=== PATIENT | female | born 1995 | race Caucasian/White ===

== ENCOUNTER 2021-05-12 17:47 | Emergency (ER) | payer OTHER, SELFPAY ==
[2021-05-12 17:53] VITALS: BP 110/75; BP 120/76; PULSE 87; PULSE 88; RESP 18; TEMP 36.9; O2SAT 100; BMI 26.6
== END 2021-05-12 19:35 | disposition left against medical advice (07) ==
LOC: HO.ED 19:20
PROVIDERS: Emergency Provider Emergency Medicine
DX: O9A.312 Physical abuse complicating pregnancy, second trimester (principal); S00.81XA Abrasion of other part of head, initial encounter; Y04.2XXA Assault by strike against or bumped into by another person, initial encounter; Z3A.00 Weeks of gestation of pregnancy not specified; Y93.9 Activity, unspecified; Y92.9 Unspecified place or not applicable; Y99.9 Unspecified external cause status; Y07.03 Male partner, perpetrator of maltreatment and neglect
CPT/HCPCS: 99281; 99282

== ENCOUNTER 2021-05-19 12:56 | Emergency (ER) | payer OTHER, SELFPAY ==
[2021-05-19 13:29] VITALS: BP 118/56; PULSE 98; RESP 16; TEMP 36.1; O2SAT 100; BMI 26.3
[2021-05-19 13:45] LABS: MANUAL DIFF FLAG NO
[2021-05-19 13:50] LABS: Basophils Percent Auto 0.3 % (0-2); Eosinophils Absolute Auto 0.2 X10*3/uL (0.0-0.4); Eosinophils Percent Auto 2.1 % (0-4); Hematocrit 39.2 % (37.0-47.0); Imm Gran Abs Auto 0.03 X10*3/uL (0.00-0.03); Imm Gran Pct Auto 0.4 % (0.0-0.4); Lymphocytes Absolute Auto 1.5 X10*3/uL (1.2-4.9); Lymphocytes Percent Auto 21.1 % (20-40); Mean Corpuscular HGB Conc 33.2 g/dl (31.0-35.0); Mean Corpuscular Hemoglobin 30.7 pg (27.0-33.0); Mean Corpuscular Volume 92.7 fL (80.0-98.0); Mean Platelet Volume 9.6 fL (9.4-12.3); Monocytes Absolute Auto 0.4 X10*3/uL (0.1-1.2); Neutrophils Percent Auto 71.1 % (45-73); Platelet Count 274 X10*3/uL (160-400); Red Blood Count 4.23 X10*6/uL (4.20-5.50); Red Cell Distribution Width 12.9 % (11.0-16.0)
[2021-05-19 13:53] LABS: Appearance Urine HAZY; Color Urine YELLOW; Glucose Urine UA NEG (NEG); Leukocyte Esterase Urine NEG (NEG); Nitrite Urine NEG (NEG); Urine Blood NEG (NEG); Urine Ketones NEG (NEG); Urine Protein NEG (NEG-TRACE)
[2021-05-19 14:03] LABS: Anion Gap 14 (12-20); Blood Urea Nitrogen 5 mg/dL (9-16); Calcium 9.2 mg/dL (8.4-10.2); Carbon Dioxide 22 mmol/L (22-29); Chloride 102 mmol/L (96-108); Estimated Glomerular Filt Rate > 60; Glucose Random 80 mg/dL (60-115); Potassium 4.2 mmol/L (3.3-5.1); Sodium 134 mmol/L (135-145)
--- NOTE | 2021-05-19 16:52 | ED_ITS ---
HPI - Abdominal Pain General Chief Complaint: Abdominal Pain Stated Complaint: R side pelvic pain/5 months preg Time Seen by Provider: 05/19/21 16:39 Source: patient Mode of arrival: ambulatory Limitations: no limitations History of Present Illness HPI narrative: 25-year-old female about 5 months with nonsignificant history, patient been having vomiting since the beginning of the , patient came in today for new lower pelvic pain to both sides, pain is localized to bilateral groin area radiated to the back, pain is constant described as moderate not food related, patient been having good appetite all day, no fever or chills, overall patient do not feel sick, no uterine contractions, no vaginal bleeding. Related Data Allergies Allergy/AdvReac Type Severity Reaction Status Date / Time lithium Allergy Hallucinati Verified 05/12/21 17:53 ons Penicillins [PCN] Allergy Hives Verified 05/12/21 17:53 Review of Systems Review of Systems All other systems are reviewed and are negative Constitutional: Reports as per HPI and Reports no additional constitutional complaints Eyes: Reports as per HPI and Reports no additional eye complaints Reports system reviewed and no additional complaints, except as documented Cardiovascular: Reports as per HPI and Reports no additional cardiovascular complaints Respiratory: Reports as per HPI and Reports no additional respiratory complaints Gastrointestinal: Reports as per HPI and Reports no additional gastrointestinal complaints Genitourinary: Reports no additional female genitourinary complaints Musculoskeletal: Reports no additional musculoskeletal complaints Skin/Breast: Reports system reviewed and no additional complaints, except as docu Psychiatric: Reports no additional psychiatric complaints Endocrine: Reports no additional endocrine complaints Hematologic/Lymphatic: Reports no additional hematologic/lymphatic complaints Allergic/Immunologic: Reports no additional allergic/immunologic complaints Reports system reviewed and no additional complaints, except as documented and R eports Abnormal speech present [facility] Past Medical History Medical History (Updated 05/19/21 @ 17:13 by Liza North MD) No known health problems Social History Social History Advance Directives: No Advance Directives Information Provided: No Patient : Yes Physical Exam ED Vital Signs: Vital Signs - 24 hr 05/19/21 13:29 Temperature 97 F Pulse Rate 98 Respiratory Rate 16 Blood Pressure 118/56 L Pulse Oximetry 100 BMI result Body Mass Index 26.3 Vital signs have been reviewed as appeared to be correct. Blood pressure normal. Heart rate normal. Respiration rate normal. Temperature normal. Oxygen saturation normal. Appearance: Alert. Oriented X3. No acute distress. Head: Normal external exam. Normocephalic. Atraumatic. No Viera signs noted. No raccoon eyes noted Eyes: PERRLA. EOMI. Conjunctiva and sclera normal. Eyelids normal. ENT: TM's Normal. Pharynx normal. Uvula midline. Moist mucous membranes. No trismus noted. No drooling noted. No muffled voice noted. Neck: Normal inspection. Neck supple. FROM. No adenopathy. Thyroid Normal. No meningeal signs. No neck mass noted. CVS: Normal heart rate and rhythm. Heart sound normal. No murmurs noted. Pulses normal throughout. Respiratory: No respiratory distress. Painless inspiration. Breath sounds normal. No wheezes/rales/rhonchi noted. Chest nontender. No accessory muscle usage noted or decreased air movement noted. Abdomen: Soft and nontender. Uterus enlarged to the umbilical level. Bowel sounds normal in all 4 quadrants. No distention noted. No organomegaly noted. No visible injury noted. Back: No CVA tenderness. Full range of motion noted. Skin: Skin warm and dry. Normal skin color. Normal skin turgor. No rashes/lesions/lacerations noted. Extremities: No lower extremity edema. Extremities exhibit normal range of motion. Extremities nontender. Neuro: Oriented X 3. Cranial nerve exam: II-XII are grossly intact No motor deficit. No sensory deficit. Reflexes normal. Course Course Course Narrative: Assessment and plan. 25-year-old female presented with lower pelvic pain, patient is 5 months with no obstetrical problems, abdominal exam reveals no tenderness or rebound tenderness or guarding, patient with normal WBCs, as I explained to the patient there is very low chance that patient's presentation could be acute appendicitis or early appendicitis which is extremely unlikely with a normal WBCs and patient's exam findings, more than likely patient's symptoms is related to her large uterus and ligamentous strain specially with the radiation of the pain to the back and increase with movement. However patient was instructed to return back if pain is becoming more severe or start to develop more symptoms of nausea or vomiting or diarrhea or fever or loss of appetite. MDM - Abdominal Pain Medical Records Attestation: I reviewed the patient's medical records. Lab Data Attestation: I reviewed the patient's lab results. Result diagrams: 05/19/21 13:42 05/19/21 13:42 Labs: Lab Results 05/19/21 05/19/21 05/19/21 Range/Units 13:42 13:42 13:42 WBC 7.0 (4.8-10.8) X10*3/uL RBC 4.23 (4.20-5.50) X10*6/uL Hgb 13.0 (12.0-16.0) g/dl Hct 39.2 (37.0-47.0) % MCV 92.7 (80.0-98.0) fL MCH 30.7 (27.0-33.0) pg MCHC 33.2 (31.0-35.0) g/dl RDW 12.9 (11.0-16.0) % Plt Count 274 (160-400) X10*3/uL MPV 9.6 (9.4-12.3) fL Immature Gran % (Auto) 0.4 (0.0-0.4) % Neut % (Auto) 71.1 (45-73) % Lymph % (Auto) 21.1 (20-40) % Payette % (Auto) 5.0 (2-11) % Eos % (Auto) 2.1 (0-4) % Baso % (Auto) 0.3 (0-2) % Lymph # (Auto) 1.5 (1.2-4.9) X10*3/uL Payette # (Auto) 0.4 (0.1-1.2) X10*3/uL Eos # (Auto) 0.2 (0.0-0.4) X10*3/uL Baso # (Auto) 0.0 (0.0-0.2) X10*3/uL Abs Immat Gran (auto) 0.03 (0.00-0.03) X10*3/uL Absolute Neuts (auto) 5.0 (2.0-8.3) x10*3/uL Absolute Nucleated RBC 0.000 (0.0-0.012) X10*3/uL Nucleated RBC % (auto) 0.0 (0.0-0.2) /100WBC Sodium 134 L (135-145) mmol/L Potassium 4.2 (3.3-5.1) mmol/L Chloride 102 (96-108) mmol/L Carbon Dioxide 22 (22-29) mmol/L Anion Gap 14 (12-20) BUN 5 L (9-16) mg/dL Creatinine 0.58 (0.5-1.4) mg/dL Estim Creat Clear Calc 166.0 Estimated GFR > 60 Random Glucose 80 (60-115) mg/dL Calcium 9.2 (8.4-10.2) mg/dL Urine Color YELLOW Urine Appearance HAZY Urine pH 7.0 (5.0-8.0) Ur Specific [place]on 1.010 (1.005-1.025) Urine Protein NEG (NEG-TRACE) MG/DL Urine Glucose (UA) NEG (NEG) MG/DL Urine Ketones NEG (NEG) MG/DL Urine Blood NEG (NEG) Urine Nitrite NEG (NEG) Ur Leukocyte Esterase NEG (NEG) Discharge Plan Discharge Clinical Impression: Abdominal pain, Second trimester Patient Disposition: Home, Self-Care Instructions: Abdominal Pain in (ED) Additional Instructions: Come back to the emergency department if pain persists for more than 2 days, or develop any new symptoms of worsening of the pain or developing nausea or vomiting or fever or chills. Referrals: Physician,None [Primary Care Provider] - 2 days
--- NOTE | 2021-05-19 17:03 | PC.NURSE ---
Pt received: Pt AOX4 and is currently 5 months . . Pt c/o B/L pelvic pain that intermittently radiates to the groin. Heart sounds normal and lungs clear. Pt abd soft and mild tenderness to B/L pelvis.
[2021-05-19 17:10] LABS: Alanine Aminotransferase 10 U/L (0-31); Albumin Level 4.1 g/dL (3.5-5.0); Alkaline Phosphatase 61 U/L (39-117); Aspartate Amino Transferase 19 U/L (5-31); Bilirubin Direct < 0.2 mg/dL (0.0-0.5); Bilirubin Total 0.5 mg/dL (0.0-1.0); Lipase 8 U/L (8-78); Total Protein 7.5 g/dL (6.5-8.0)
== END 2021-05-19 17:41 | disposition home or self-care (01) ==
PROVIDERS: Emergency Provider Emergency Medicine
DX: O26.892 Other specified pregnancy related conditions, second trimester (principal); R10.2 Pelvic and perineal pain; Z3A.21 21 weeks gestation of pregnancy
CPT/HCPCS: 36415; 80048; 80076; 81003; 83690; 84702; 85025; 99283

== ENCOUNTER 2021-07-03 09:45 | Emergency (ER) | payer OTHER, SELFPAY ==
--- NOTE | ~2021-07-03 | XR_ITS ---
EXAMINATION: XR CHEST CLINICAL INFORMATION: Cough and nasal congestion COMPARISON: None TECHNIQUE: AP portable upright view of the chest was obtained. FINDINGS: No significant abnormality is noted involving the heart, lungs, mediastinum, bony thorax or soft tissues. XR/XR chest 1V IMPRESSION: Unremarkable examination.
[2021-07-03 09:57] VITALS: BP 106/57; PULSE 104; RESP 20; TEMP 36.7; O2SAT 97; BMI 27.4
[2021-07-03 10:12] VITALS: BP 107/57; PULSE 106; RESP 18; O2SAT 98
--- NOTE | 2021-07-03 10:31 | ED.URI ---
HPI - URI/Sore Throat General Chief Complaint: Abdominal Pain Stated Complaint: diff breathing 7 mos Time Seen by Provider: 07/03/21 09:58 Source: patient and family ( significant other at bedside) Mode of arrival: ambulatory Limitations: no limitations History of Present Illness HPI Narrative: 25-year-old female who is currently 7 months being followed by emergency OBGYN with no complications this is not a high risk who is [id number] presenting to the ED with complaints of 2 days of chills, fatigue, malaise, body aches, nasal congestion / rhinorrhea and a productive cough with clear/ white/ yellow colored sputum with posttussive emesis. She reports that she is not vaccinated for flu or COVID. She denies recent travel or sick contacts. She denies any measured fevers, dizziness, headaches, neck pain / stiffness, trouble swallowing or breathing, chest pain or shortness of breath, wheezing, dyspnea on exertion, orthopnea, palpitations, abdominal pain, back pain, decreased movement, vaginal bleeding, abnormal vaginal discharge, hematuria, dysuria, lower extremity edema or calf tenderness, rashes or any other symptoms complaints or concerns at this time. MD elicited complaint: cough, rhinorrhea and nasal congestion Onset (ago): day(s) (2) Consistency: constant and progressively worsening Severity: moderate Description of mucous: clear, watery and yellow Able to tolerate fluids by mouth: Yes Exacerbating factors: nothing Relieving factors: nothing Associated symptoms: chills, myalgias, rhinorrhea, nasal congestion, cough, nausea and vomiting Treatments prior to arrival: none Related Data Previous Rx's Medication Instructions Recorded acetaminophen 500 mg tablet 1,000 mg PO QID PRN #14 tab 07/03/21 (Tylenol Extra Strength) oseltamivir 75 mg capsule (Tamiflu) 75 mg PO BID 5 Days #10 cap 07/03/21 Allergies Allergy/AdvReac Type Severity Reaction Status Date / Time lithium Allergy Hallucinati Verified 05/12/21 17:53 ons Penicillins [PCN] Allergy Hives Verified 05/12/21 17:53 Review of Systems Review of Systems: Constitutional : + Chills/fatigue/ malaise, No Weight loss, No Night Sweats ENT/Mouth : + nasal congestion/rhinorrhea, No Hearing loss, No Ear Pain, No Sinus Pain, No Hoarseness, No sore throat, No Swallowing Difficulty Eyes: No Eye Pain, No Swelling, No Redness, No Foreign Body, No Discharge, No Vision Changes Cardiovascular : No Chest Pain, No SOB, No Dyspnea on Exertion, No Orthopnea, No Edema, No Palpitations Respiratory : + Cough, + Sputum, + posttussive emesis, No Wheezing, No Smoke Exposure, No Dyspnea Gastrointestinal : No Nausea, No Vomiting, No Diarrhea, No Constipation, No abdominal Pain, No Hematochezia, No Melena Genitourinary : no irregular bleeding, No Dysuria, No Urinary Frequency, No Hematuria, No Urinary Incontinence, No Urgency, No Flank Pain, No Urinary Flow Changes, No Hesitancy Musculoskeletal : No joint pain, No Myalgias, No Joint Swelling Skin : No Skin Lesions, No rash Neuro : No Weakness, No Numbness, No Paresthesias, No Loss of Consciousness, No Dizziness, No Headache Psych : No Anxiety/Panic, No Depression, No SI/HI/AH/VH, No Social Issues, Heme/Lymph: No Bruising, No Bleeding,No Lymphadenopathy Endocrine : No Polyuria, No Polydipsia, No Temperature Intolerance Yes all other systems are reviewed and are negative [facility] Past Medical History Attestation statement: The following information was validated with the patient. Medical History No known health problems Social History Social History Advance Directives: No Advance Directives Information Provided: No Patient : Yes Physical Exam Vital Signs: Vital Signs: Last Vital Signs Temp 98.1 F 07/03/21 09:57 Pulse 106 H 07/03/21 10:12 Resp 18 07/03/21 10:12 BP 107/57 L 07/03/21 10:12 Pulse Ox 98 07/03/21 10:12 BMI result Body Mass Index 27.4 vital signs have been reviewed as normal and appeared to be correct. Blood pressure 106/57. Heart rate 104 Respiration rate normal. Temperature normal. Oxygen saturation normal. Appearance: Alert. Oriented X3. No acute distress. Head: Normal external exam. Normocephalic. Atraumatic. Eyes: PERRLA. EOMI. Conjunctiva and sclera normal. Eyelids normal. ENT: EAC normal. TM's Normal. Pharynx normal. Uvula midline. Moist mucous membranes. No lesions/ulcerations or masses noted on the tongue. Normal voice. No trismus noted. No drooling noted. No muffled voice noted. Neck: Normal inspection. Neck supple. FROM. No adenopathy. Thyroid Normal. No tracheal deviation noted. No crepitus is noted. No meningeal signs. No neck mass noted. No signs of trauma noted. CVS: Normal heart rate and rhythm. Heart sound normal. Pulses normal throughout. No murmurs/rales/gallops. Respiratory: No respiratory distress. Painless inspiration. Breath sounds normal. No wheezes/rales/rhonchi noted. Chest nontender. No crepitus is noted. No signs of trauma noted. No accessory muscle usage noted or decreased air movement noted. No signs of trauma. Abdomen: Soft and nontender. Bowel sounds normal in all 4 quadrants. No distention noted. No organomegaly noted. No visible injury noted. Back: No CVA tenderness. Full range of motion noted. Nontender. No signs of trauma. Patient neuro intact bilaterally and distally on all 4 extremities. Patient's reflexes intact bilaterally and distally on all 4 extremities. No rashes/lesion/induration/fluctuance or signs of infection noted. gravid uterus consistent with Seven months. movement noted. Normal heart tones. Skin: Skin warm and dry. Normal skin color. Normal skin turgor. No rashes/lesions/lacerations noted. Extremities: No lower extremity edema. No calf tenderness is noted. Extremities exhibit normal range of motion and nontender. Neuro: Oriented X 3. No motor deficit. No sensory deficit. Reflexes normal. Normal steady gait. No focal neuro deficits noted. CN's II-XII intact bilaterally? Vascular: + radial pulses/+ 2 distal pedal pulses/+2 dorsalis pedis b/l. Normal cap refill. No cyanosis noted to upper extremity nails and lower extremity toes nails. Course Course Course Narrative: 10am 25-year-old female who is currently 7 months being followed by emergency OBGYN with no complications this is not a high risk who is [id number] presenting to the ED with complaints of 2 days of chills, fatigue, malaise, body aches, nasal congestion / rhinorrhea and a productive cough with clear/ white/ yellow colored sputum with posttussive emesis. She reports that she is not vaccinated for flu or COVID. She denies recent travel or sick contacts. She denies any measured fevers, dizziness, headaches, neck pain / stiffness, trouble swallowing or breathing, chest pain or shortness of breath, wheezing, dyspnea on exertion, orthopnea, palpitations, abdominal pain, back pain, decreased movement, vaginal bleeding, abnormal vaginal discharge, hematuria, dysuria, lower extremity edema or calf tenderness, rashes or any other symptoms complaints or concerns at this time. Will obtain a chest x-ray due to patient wants a chest x-ray I did explain benefits and risks and she wants to be shielded. Will obtain a COVID and flu swab. Obtain heart tones and re-evaluate. Reevaluation(s) Reevaluation #1: - Patient negative for COVID. Patient positive for flu. Chest x-ray within normal limits no evidence of pneumonia. Will DC home with Tamiflu and instructions to take Tylenol and to return if any new or worsening symptoms to follow up with primary care provider and OBGYN. Patient understands agrees with this plan. Time: 10:54 [facility] - URI/Sore Throat Medical Records Attestation: I reviewed the patient's medical records. Lab Data Attestation: I reviewed the patient's lab results. Labs: Lab Results 07/03/21 07/03/21 Range/Units 10:14 10:14 COVID-19 (CARLOS) Negative (Negative) COVID-19 Clin Com See Note Influenza Type A (STACY) Positive A (Negative) Influenza Type B (STACY) Negative (Negative) Influenza A & B Note See Note Imaging Data Chest x-ray: Attestation: I personally reviewed and interpreted this imaging study as follows: Radiologist's impression: FINDINGS: No significant abnormality is noted involving the heart, lungs, mediastinum, bony thorax or soft tissues. XR/XR chest 1V IMPRESSION: Unremarkable examination. Discharge Plan Discharge Clinical Impression: Influenza A Patient Disposition: Home, Self-Care Instructions: Influenza (DC) Prescriptions: New oseltamivir [Tamiflu] 75 mg capsule 75 mg PO BID 5 Days Qty: 10 0RF acetaminophen [Tylenol Extra Strength] 500 mg tablet 1,000 mg PO QID PRN (Reason: fever or pain) Qty: 14 0RF Referrals: Physician,None [Primary Care Provider] - (your pcp and OBGYN) Print Language: [place]
[2021-07-03 10:32] LABS: COVID-19 Test Negative (Negative); IDNOW Serial# 55D5AD1C; Influenza A Positive (Negative); Influenza B2 Negative (Negative)
== END 2021-07-03 11:05 | disposition home or self-care (01) ==
PROVIDERS: Physician Assistant Medical; Emergency Provider Emergency Medicine
DX: O99.513 Diseases of the respiratory system complicating pregnancy, third trimester (principal); J10.1 Influenza due to other identified influenza virus with other respiratory manifestations; Z3A.00 Weeks of gestation of pregnancy not specified; Z20.822 Contact with and (suspected) exposure to COVID-19
CPT/HCPCS: 71045; 87502; 87635; 99283

== ENCOUNTER 2021-07-19 11:08 | Emergency (ER) | payer OTHER, SELFPAY ==
[2021-07-19 12:16] VITALS: BP 132/78; PULSE 110; RESP 22; TEMP 36.6; O2SAT 99; BMI 28.3
[2021-07-19 12:59] LABS: IDNOW Serial# 08D9AD1C; Strep A Nucleic Acid Negative (Negative)
== END 2021-07-19 16:52 | disposition left against medical advice (07) ==
LOC: HO.ED 15:23
PROVIDERS: Emergency Provider Emergency Medicine
DX: R07.89 Other chest pain (principal); J02.9 Acute pharyngitis, unspecified; R05.9 Cough, unspecified; R11.10 Vomiting, unspecified; R09.81 Nasal congestion
CPT/HCPCS: 36415; 87651; 99281; 99282; 99283

== ENCOUNTER 2021-07-31 02:35 | Emergency (ER) | payer OTHER, SELFPAY ==
[2021-07-31 02:41] VITALS: BP 113/56; PULSE 111; RESP 18; TEMP 37; O2SAT 97; BMI 27.1
--- NOTE | 2021-07-31 03:33 | ED_ITS ---
HPI - General Chief complaint: Abdominal Pain Stated complaint: 7 Months /Leaking Time Seen by Provider: 07/31/21 03:07 Source: patient Mode of arrival: ambulatory History of Present Illness HPI Narrative: 25-year-old female without significant past medical history, , 30 weeks without any complications thus far who states that approximately 2300 she began experiencing clear fluid leak which for from her vagina but denies any bleeding, she denies any cramps but states she is having lower pelvic pain and was concerned that her water may have broken. Patient denies any urinary symptoms, fevers, chills, shortness of breath. Related Data Previous Rx's Medication Instructions Recorded acetaminophen 500 mg tablet 1,000 mg PO QID PRN #14 tab 07/03/21 (Tylenol Extra Strength) oseltamivir 75 mg capsule (Tamiflu) 75 mg PO BID 5 Days #10 cap 07/03/21 Allergies Allergy/AdvReac Type Severity Reaction Status Date / Time lithium Allergy Hallucinati Verified 05/12/21 17:53 ons Penicillins [PCN] Allergy Hives Verified 05/12/21 17:53 Review of Systems Review of Systems: Pertinent positives and negatives as stated in HPI 10 point review of systems is otherwise negative. PMFSH Past Medical History Source: nursing notes reviewed Medical History No known health problems Social History Social History Advance Directives: No Physical Exam Vital Signs: Vital Signs: Last Vital Signs Temp 98.6 F 07/31/21 02:41 Pulse 111 H 07/31/21 02:41 Resp 18 07/31/21 02:41 BP 113/56 L 07/31/21 02:41 Pulse Ox 97 07/31/21 02:41 BMI result Body Mass Index 27.1 VITAL SIGNS: Reviewed. GENERAL: Well developed, well nourished, in no acute distress. HEAD: Normocephalic/atraumatic, EYES: PERRLA, EOMI EARS: Ext canals without abnormality OROPHARYNX: no oral lesions noted, posterior pharynx clear LUNGS: Normal breath sounds. No adventitious sounds or accessory muscle use. SpO2<97> CARDIOVASCULAR: Regular rate and rhythm without noted murmurs ABDOMEN: Soft, non-tender, non-distended with bowel sounds. PELVIC: There is clear fluid mixed with white chunky material in the posterior fornix SKIN: Inspection of the skin reveals no rashes NEUROLOGIC: Alert and oriented x 4. Bedside ultrasound: Noted 1 movement, FHR-96 Course Course Course Narrative: 25-year-old female with history and clinical presentation consistent with loss of fluid and lower pelvic pain, heart rate is noted to be low and there is fluid within the posterior fornix of the vagina. This case was discussed with Dr. Mathews who accepts transfer. Discharge Plan Discharge Clinical Impression: Currently , Acute fluid loss, heart rate present Patient Disposition: Xfer [facility] Transfer Details: Loss of fluid, low heart rate Prescriptions: No Action oseltamivir [Tamiflu] 75 mg capsule 75 mg PO BID 5 Days Qty: 10 0RF acetaminophen [Tylenol Extra Strength] 500 mg tablet 1,000 mg PO QID PRN (Reason: fever or pain) Qty: 14 0RF
[2021-07-31] MEDS: 0.9 % Sodium Chloride 1,000 ML 999 ML IV (04:01)
[2021-07-31 04:04] LABS: COVID-19 Test Negative (Negative); IDNOW Serial# 9DB6401D
== END 2021-07-31 04:10 | disposition short-term general hospital (02) ==
PROVIDERS: Emergency Provider Student in an Organized Health Care Education/Training Program
DX: O41.8X30 Other specified disorders of amniotic fluid and membranes, third trimester, not applicable or unspecified (principal); O26.893 Other specified pregnancy related conditions, third trimester; R10.30 Lower abdominal pain, unspecified; Z3A.30 30 weeks gestation of pregnancy; Z20.822 Contact with and (suspected) exposure to COVID-19
CPT/HCPCS: 87635; 99285

== ENCOUNTER 2022-11-03 15:24 | Emergency (ER) | payer OTHER, SELFPAY ==
[2022-11-03 15:27] VITALS: BP 122/74; PULSE 112; O2SAT 96
[2022-11-03 15:31] VITALS: BP 119/71; PULSE 109; RESP 18; TEMP 36.2; O2SAT 99; BMI 26.3
[2022-11-03 16:05] LABS: Appearance Urine Cloudy; Color Urine Dark Yellow; Glucose Urine UA 250 mg/dL (Negative); Leukocyte Esterase Urine Small (1+) (Negative); Nitrite Urine Negative (Negative); PH 6.5 (5.0-9.0); Specific Gravity - Urine 1.025 (1.005-1.025); UMIC TRIGGER UACC YES; Urine Blood Negative (Negative); Urine Ketones Trace mg/dL (Negative); Urine Protein 30 (1+) mg/dL (Neg-Trace)
[2022-11-03 16:17] LABS: Amphetamine Screen Urine Not Detected (Not Detect); Barbiturates, Urine Not Detected (Not Detect); Benzodiazepines Screen Urine Not Detected (Not Detect); Cannabinoid Screen Urine POSITIVE (Not Detect); Cocaine Screen Urine Not Detected (Not Detect); Fentanyl, urine Not Detected (Not Detect); Opiate Screen Urine Not Detected (Not Detect); Phencyclidine Screen Urine Not Detected (Not Detect)
[2022-11-03 16:18] LABS: MANUAL DIFF FLAG NO
[2022-11-03 16:22] LABS: Basophils Percent Auto 0.3 % (0-2); Eosinophils Absolute Auto 0.3 X10*3/uL (0.0-0.4); Eosinophils Percent Auto 5.5 % (0-4); Hematocrit 34.2 % (37.0-47.0); Hemoglobin 11.4 g/dl (12.0-16.0); Imm Gran Abs Auto 0.02 X10*3/uL (0.00-0.03); Imm Gran Pct Auto 0.3 % (0.0-0.4); Lymphocytes Absolute Auto 1.3 X10*3/uL (1.2-4.9); Lymphocytes Percent Auto 22.5 % (20-40); Mean Corpuscular HGB Conc 33.3 g/dl (31.0-35.0); Mean Corpuscular Hemoglobin 30.9 pg (27.0-33.0); Mean Corpuscular Volume 92.7 fL (80.0-98.0); Mean Platelet Volume 9.3 fL (9.4-12.3); Monocytes Absolute Auto 0.4 X10*3/uL (0.1-1.2); Monocytes Percent Auto 7.3 % (2-11); Neutrophils Absolute Auto 3.8 x10*3/uL (2.0-8.3); Neutrophils Percent Auto 64.1 % (45-73); Platelet Count 276 X10*3/uL (160-400); Red Blood Count 3.69 X10*6/uL (4.20-5.50); Red Cell Distribution Width 13.2 % (11.0-16.0); White Blood Count 5.9 X10*3/uL (4.8-10.8)
[2022-11-03 16:23] LABS: Bacteria Urine 4+ (None Seen); Hyaline Casts Urine 0-2 /LPF (0-2); RBC Urine 0-2 /HPF (0-2); Squamous Epithelial Cell Urine >20 /HPF (0-2); UACC Culture Trigger YES; WBC Urine 21-50 /HPF (0-5)
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
[2022-11-03 16:42] LABS: Ethanol < 10 mg/dL
--- NOTE | 2022-11-03 16:45 | MHC.CARE ---
Pt seen by [facility] and is on section 12 for inpatient level of care.
[2022-11-03 16:49] LABS: Alanine Aminotransferase 13 U/L (0-31); Albumin Level 3.4 g/dL (3.5-5.0); Alkaline Phosphatase 69 U/L (39-117); Anion Gap 10 (12-20); Aspartate Amino Transferase 18 U/L (5-31); Bilirubin Total 0.2 mg/dL (0.0-1.0); Blood Urea Nitrogen 7 mg/dL (9-16); Calcium 8.8 mg/dL (8.4-10.2); Carbon Dioxide 25 mmol/L (22-29); Chloride 107 mmol/L (96-108); Creatinine Clr Calc Pharmacy 139.1; Estimated Glomerular Filt Rate > 60; Glucose Random 83 mg/dL (60-115); HCG Quantitative 8140 mIU/mL; Potassium 3.8 mmol/L (3.3-5.1); Sodium 138 mmol/L (135-145); Total Protein 6.5 g/dL (6.5-8.0)
--- NOTE | 2022-11-03 20:08 | PHA.MEDREC ---
Pharmacy Consult ? Medication Reconciliation Pharmacy has reviewed the medication reconciliation competed by [facility]. Hydoxyzine is PRN instead of RADHA per claim history. Patient is . Hydoxyzine is not safe to use in early - 1st and 2nd trimesters due to cardiac defects. Fluoxetine has been adjust to once weekly dose due to pregnacy . Cynthia Shepherd, PharmD
[2022-11-03] MEDS: QUEtiapine Fumarate 25 MG TABLET PO (21:12)
[2022-11-03] MEDS: Nitrofurantoin Monohyd/M-Cryst 100 MG CAPSULE PO (21:13)
[2022-11-04 02:19] VITALS: BP 114/69; PULSE 74; RESP 16; TEMP 36.2; O2SAT 99
--- NOTE | 2022-11-04 05:51 | PC.NURSE ---
Patient slept through the night, Patient six month , no distress observed/reported, medication compliant, + for UTI Macrobid BID initiated, behavior non concerning, patient was assessed by [facility] in the community with disposition section 12 inpatient bed search however per care team patient may get transfer to [facility], labs completed/resulted, will continue to monitor.
[2022-11-04] MEDS: Nitrofurantoin Monohyd/M-Cryst 100 MG CAPSULE PO ×2 (09:58→20:59)
[2022-11-04] MEDS: Multivitamin TABLET 1 TAB PO (09:59)
[2022-11-04] MEDS: FLUoxetine HCl 20 MG CAPSULE 40 MG PO (09:59)
--- NOTE | 2022-11-04 10:00 | PC.NURSE ---
pt served with Restraining Order by [facility].
[2022-11-04 11:19] VITALS: BP 94/57; PULSE 95; RESP 16; TEMP 36; O2SAT 100
--- NOTE | 2022-11-04 11:29 | MHC.CARE ---
[facility] stated that pt has a potential placement at [facility] pending medical clearance from this facility.? This information was shared with psychiatric provider Hammad Culver who noted some concerning findings with pt?s labs. Hammad Culver spoke with OB Dr. Hillman who believes that [facility]?s inpatient unit would be the best option for her because of the findings.? This information was sheared with Sarah from [facility] who advised CARE Team that they had spoke with [facility] and was advised that [facility] will not be taking any outside referrals this weekend. [facility] team[facility] been advised.
[2022-11-04 16:22] VITALS: BP 113/69; PULSE 77; RESP 20; TEMP 36.2; O2SAT 100
--- NOTE | 2022-11-04 17:00 | PC.NURSE ---
Spoke with CALVIN Lizama from [facility]. Pt not accepted to [facility] because she is . Care Team aware. pt made aware.
[2022-11-04] MEDS: QUEtiapine Fumarate 25 MG TABLET PO (20:59)
[2022-11-04 21:54] LABS: COVID-19 Test Negative (Negative); IDNOW Serial# 08D9AD1C
[2022-11-05 02:17] VITALS: BP 109/57; PULSE 75; RESP 16; TEMP 36.3; O2SAT 100
--- NOTE | 2022-11-05 05:51 | PC.NURSE ---
Patient slept through the night, patient is six month , no distress observed/reported, medication compliant, + for UTI Macrobid BID initiated, behavior non concerning, patient was assessed by [facility] in the community with disposition section 12 inpatient bed search, no update on bed search yet, VSS, will continue to monitor.
[2022-11-05] MEDS: Nitrofurantoin Monohyd/M-Cryst 100 MG CAPSULE PO (07:59)
[2022-11-05] MEDS: Multivitamin TABLET 1 TAB PO (07:59)
--- NOTE | 2022-11-05 10:20 | MHC.CARE ---
Call to [facility] for clarification on patient?s disposition. Spoke with water supervisor Kaye who reported that patient was reassessed by a clinician last night and determination was discharge, follow up with current providers. Talked to patient who stated that her understanding was that she could leave in the am, has a ride and a safe place to go today. See evaluation for further details. Updated ED provider who will discharge patient.
== END 2022-11-05 10:18 | disposition home or self-care (01) ==
PROVIDERS: Emergency Medicine; Emergency Provider Emergency Medicine Emergency Medical Services
DX: O99.341 Other mental disorders complicating pregnancy, first trimester (principal); O23.41 Unspecified infection of urinary tract in pregnancy, first trimester; N39.0 Urinary tract infection, site not specified; O99.321 Drug use complicating pregnancy, first trimester; F12.90 Cannabis use, unspecified, uncomplicated; Z3A.01 Less than 8 weeks gestation of pregnancy
CPT/HCPCS: 36415; 80053; 80307; 81001; 81003; 84702; 85025; 87086; 87635; 99284; 99285